=== PATIENT | male | born 1960 | race Caucasian/White ===

== ENCOUNTER 2023-03-20 06:58 | Emergency (ER) | payer BC | END 2023-03-20 09:14 | disposition home or self-care (01) | LOC: JP.ED 06:58 | DX: M70.41 Prepatellar bursitis, right knee (principal); M10.9 Gout, unspecified | CPT/HCPCS: 73562-26-RT; 73562-RT; 73700-26-RT; 73700-RT; 99284 ==

== ENCOUNTER 2024-12-15 19:29 | Emergency (ER) | payer BC ==
[2024-12-15] MEDS: Bacitracin Oint 1 GM U/D Packet TOP ONE (21:01)
== END 2024-12-15 21:10 | disposition home or self-care (01) ==
LOC: JP.ED 19:29
DX: S60.451A Superficial foreign body of left index finger, initial encounter (principal); Z79.899 Other long term (current) drug therapy; W45.8XXA Other foreign body or object entering through skin, initial encounter
CPT/HCPCS: 99283; J2003